=== PATIENT | female | born 1960 | race Caucasian/White ===

== ENCOUNTER → 2018-06-30 | Outpatient (CLI) | payer BC | END | disposition home or self-care (01) | LOC: KCIC MAMMO 15:57 | PROVIDERS: ATTEND Obstetrics & Gynecology | DX: Z12.31 Encounter for screening mammogram for malignant neoplasm of breast (principal) | CPT/HCPCS: 77067 ==

== ENCOUNTER → 2019-08-09 | Outpatient (CLI) | payer BC ==
--- NOTE | 2019-08-09 15:15 | KCIC ---
Bilateral digital screening mammograms: Reason for examination: Routine screening. Comparison is made to previous study dated 06/30/2018. Interpretation was made with the benefit of CAD. The skin and nipples show no abnormalities. No abnormal axillary lymph nodes are seen. The breast parenchyma shows scattered fibroglandular density. (Breast density: Category B.) There appears to be a focal increase in nodularity in the 2:00 position anteriorly in the left breast approximately 4.5 cm from the nipple. Further evaluation with ultrasound is recommended. There are no other new dominant masses, suspicious calcifications or architectural distortions. Impression: Focally increased nodularity at the 2:00 position approximately 4.5 cm from the nipple in the left breast. Recommend further evaluation with ultrasound. BI-RADS Category 0: Incomplete. Needs additional imaging evaluation. "Our facility is accredited by the [employer] Mammography [employer]." This patient's information has been entered into a reminder system for the patient to be notified with the results of her examination and a target date for the next mammogram. Electronically signed by: Gloria Griffin MD (08/09/2019 3:11 PM) [id number]
== END | disposition home or self-care (01) ==
LOC: KCIC MAMMO 13:19
PROVIDERS: ATTEND Nurse Practitioner Family
DX: N64.89 Other specified disorders of breast (principal); Z12.31 Encounter for screening mammogram for malignant neoplasm of breast
CPT/HCPCS: 77067

== ENCOUNTER → 2019-08-23 | Outpatient (CLI) | payer BC ==
--- NOTE | 2019-08-23 14:32 | KCIC ---
BREAST LEFT Clinical Indication: Abnormal screening mammogram. Comparison: Bilateral mammogram August 09, 2019 and June 30, 2018. TECHNIQUE: Real-time ultrasound imaging of the left breast is performed. Findings: An extremely dense ridge of fibroglandular tissue is noted at the 2:00 position 4.5 cm from the nipple. This may account for the mammogram appearance. No solid mass or architectural distortion is seen. There is no abnormal axillary lymph node. IMPRESSION: 1. Left breast ultrasound is negative. Recommend routine mammogram screening. 2. BI-RADS Category 1, negative. Electronically signed by: Eldon Hill MD (08/23/2019 2:29 PM) [id number]
== END | disposition home or self-care (01) ==
LOC: KCIC US 13:17
PROVIDERS: ATTEND Nurse Practitioner Family
DX: R92.8 Other abnormal and inconclusive findings on diagnostic imaging of breast (principal)
CPT/HCPCS: 76641